=== PATIENT | female | born 1985 | race Caucasian/White ===

== ENCOUNTER 2016-12-28 18:16 | Emergency (ER) | payer OTHER ==
[~2016-12-28] VITALS: Ht 162.6 cm; Wt 79.0 kg
[2016-12-28 18:30] VITALS: Ht 162.6 cm; Wt 79.0 kg
[2016-12-28] MEDS ORDERED: morphine 4 MG/ML VIAL IV STA (19:07)
[2016-12-28] MEDS ORDERED: FAMOTIDINE 20 MG INJ IV STA (19:07)
[2016-12-28] MEDS ORDERED: ONDANSETRON 4 MG INJ IV STA (19:07)
[2016-12-28] MEDS ORDERED: SOD CHLORIDE 0.9% 1,000 ML IV STA (19:07)
[2016-12-28] MEDS ORDERED: LIDOCAINE/MYLANTA 40 ML BTL PO STA (19:07)
[2016-12-28 19:40] LABS: BASOPHILS % 0.4 % (0.0-2.0); EOSINOPHILS # 0.1 10^3/ul (0.0-0.5); EOSINOPHILS % 0.9 % (0.0-7.0); HEMATOCRIT 41.9 % (37.0-47.0); HEMOGLOBIN 14.1 g/dl (12.0-16.0); LYMPHOCYTES # 3.2 10^3/ul (0.8-2.9); LYMPHOCYTES % 30.9 % (15.0-51.0); MEAN CORPUSCULAR HEMOGLOBIN 28.5 pg (29.0-33.0); MEAN CORPUSCULAR HGB CONC 33.7 g/dl (32.0-37.0); MEAN CORPUSCULAR VOLUME 84.8 fl (82.0-101.0); MEAN PLATELET VOLUME 10.9 fl (7.4-10.4); MONOCYTE # 0.8 10^3/ul (0.3-0.9); MONOCYTES % 7.9 % (0.0-11.0); NEUTROPHIL # 6.1 10^3/ul (1.6-7.5); NEUTROPHILS % 59.4 % (39.0-77.0); PLATELET COUNT 340 10^3/UL (140-415); RED BLOOD COUNT 4.94 10^6/ul (4.20-5.40); RED CELL DISTRIBUTION WIDTH 12.3 % (11.5-14.5); WHITE BLOOD COUNT 10.2 10^3/ul (4.8-10.8)
[2016-12-28 19:50] LABS: ADD UMIC NO; UR ASCORBIC ACID NEGATIVE (NEGATIVE); UR BILIRUBIN (Dip) NEGATIVE (NEGATIVE); UR BLOOD (Dip) NEGATIVE (NEGATIVE); UR CLARITY CLEAR (CLEAR); UR COLOR STRAW (YELLOW); UR GLUCOSE (Dip) NEGATIVE (NEGATIVE); UR KETONES (Dip) NEGATIVE (NEGATIVE); UR LEUKOCYTE ESTERASE (Dip) NEGATIVE Leu/ul (NEGATIVE); UR NITRITE (Dip) NEGATIVE (NEGATIVE); UR SPECIFIC GRAVITY (Dip) 1.011 (1.003-1.030); UR TOTAL PROTEIN (Dip) NEGATIVE (NEGATIVE); UR UROBILINOGEN (Dip) NEGATIVE (NEGATIVE)
[2016-12-28 19:55] LABS: INR 0.91; PARTIAL THROMBOPLASTIN TIME 28.2 Sec (25.0-35.0); PROTIME 12.3 Sec (12.2-14.2)
[2016-12-28 19:58] LABS: ALBUMIN 4.9 g/dl (3.3-4.9); ALBUMIN/GLOBULIN RATIO 1.16; BILIRUBIN,INDIRECT 0.2 mg/dl (0-1.1); BILIRUBIN,TOTAL 0.2 mg/dl (0.2-1.3); CALCIUM 9.9 mg/dl (8.4-10.2); CREATININE 0.65 mg/dl (0.44-1.00); POTASSIUM 3.7 mmol/L (3.5-5.1); TOTAL PROTEIN 9.1 g/dl (6.1-8.1)
--- NOTE | 2016-12-28 21:13 | RADRPT ---
PROCEDURE: CT ABDOMEN AND PELVIS WITHOUT CONTRAST. CLINICAL INDICATION: Abdominal pain TECHNIQUE: CT scan of the abdomen and pelvis without contrast was performed on a multidetector hig h-resolution CT scanner. The patient was scanned without intravenous contrast. Coronal and sagittal reformatted images were obtained from the axial source images. Images were reviewed on a [employer] PACS workstation. The total exam CTDI equals 16.0 mGy and the total exam DLP equals 970 mGy-cm . One or more of the following dose reduction techniques were used: Automated exposure control. Adjustment of the mA and/or kV according to patient size. Use of iterative reconstruction technique. COMPARISON: None FINDINGS: CT abdomen: The lung bases are clear. The heart size is within limits. There is no significant pericardial effus ion. Hepatic morphology is within normal limits. No gross contour deforming masses. The gallbladder is wi thin normal limits. No evidence of intrahepatic or extrahepatic biliary dilatation. The spleen and pancreas are within normal limits. Both adrenal glands are within normal limits. Both kidneys are and normal anatomic position. There is a 1 mm nonobstructing stone within the mid p ole of the left kidney. No evidence of obstruction or hydronephrosis. The visualized GI tract demonstrate normal caliber loops of small and large bowel. No evidence of doreen wel obstruction. The appendix is within normal limits. The unenhanced aorta is unremarkable. No significant retroperitoneal lymphadenopathy. CT pelvis: The bladder is within limits. The rectosigmoid colon is within normal limits. No significant free fl uid. No significant pelvic lymphadenopathy The uterus is mildly prominent but otherwise appears to be within normal limits. Small left adnexal cyst is noted. The visualized osseous structures appear to be within normal limits. IMPRESSION: 1. No evidence of acute intra-abdominal/pelvic inflammatory process. No evidence of bowel obstructio n. The appendix is within normal limits. 2. Punctate 1 mm nonobstructing left-sided nephrolithiasis. No obstruction or hydronephrosis within both kidneys. 3. No free fluid or free air. No gross focal fluid collections. RPTAT: AAPP Physician Stephany Date Time Electronically viewed and signed by Physician Stephany on 12/28/2016 21:13 JENNIFFER/
[2016-12-28] MEDS ORDERED: RANI150T9 PO (21:17)
[2016-12-28] MEDS ORDERED: ONDA4TAB14 PO (21:17)
[2016-12-28] MEDS ORDERED: OMEP20CA16 PO (21:17)
--- NOTE | 2017-01-05 18:41 | ERD ---
ER Documentation Chief Complaint Chief Complaint bib self, cc: abdominal pain, nausea and vomiting x 2 weeks, burning sensat HPI Patient is a 31-year-old female presenting to the emergency department with complaints of abdominal pain, nausea, and vomiting intermittently for the past 2 weeks. Symptoms are worsening. Symptoms are moderate in severity. Last menstrual cycle was December 08, 2016. The patient denies fevers, chills, or other symptoms currently. ROS All systems reviewed and are negative except as per history of present illness. Medications Home Meds Active Scripts Ondansetron (Ondansetron Odt) 4 Mg Tab.rapdis, 4 MG PO Q6H Y for NAUSEA AND/OR VOMITING, #10 TAB Prov:REGULO IGLESIAS PA-C 12/28/16 Ranitidine Hcl* (Zantac*) 150 Mg Tablet, 150 MG PO BID Y for EPIGASTRIC PAIN, # 30 TAB Prov:REGULO IGLESIAS PA-C 12/28/16 Omeprazole* (Omeprazole*) 20 Mg Capsule.dr, 20 MG PO DAILY, #20 Prov:REGULO IGLESIAS PA-C 12/28/16 Allergies Allergies: Coded Allergies: No Known Allergy (Unverified , 12/28/16) PMhx/Soc Medical and Surgical Hx: pt denies Medical Hx, pt denies Surgical Hx Hx Alcohol Use: No Hx Substance Use: No Hx Tobacco Use: No Smoking Status: Never smoker Physical Exam Physical Exam Const: Nontoxic, well-appearing female in no acute distress. Head: Atraumatic Eyes: Normal Conjunctiva ENT: Normal External Ears, Nose and Mouth. Neck: Full range of motion..~ No meningismus. Resp: Clear to auscultation bilaterally Cardio: Regular rate and rhythm, no murmurs Abd: Soft, mild midepigastric pain to palpation, no rebound tenderness or guarding, negative McBurney's point tenderness, negative Granger sign, non distended. Normal bowel sounds Skin: No petechiae or rashes Back: No midline or flank tenderness Ext: No cyanosis, or edema Neur: Awake and alert Psych: Normal Mood and Affect Results 24 hrs Laboratory Tests Test 12/28/16 19:24 White Blood Count 10.210^3/ul Red Blood Count 4.9410^6/ul Hemoglobin 14.1g/dl Hematocrit 41.9% Mean Corpuscular Volume 84.8fl Mean Corpuscular Hemoglobin 28.5pg Mean Corpuscular Hemoglobin Concent 33.7g/dl Red Cell Distribution Width 12.3% Platelet Count 80111^3/UL Mean Platelet Volume 10.9fl Neutrophils % 59.4% Lymphocytes % 30.9% Monocytes % 7.9% Eosinophils % 0.9% Basophils % 0.4% Nucleated Red Blood Cells % 0.0/100WBC Neutrophils # 6.110^3/ul Lymphocytes # 3.210^3/ul Monocytes # 0.810^3/ul Eosinophils # 0.110^3/ul Basophils # 0.010^3/ul Nucleated Red Blood Cells # 0.010^3/ul Prothrombin Time 12.3Sec Prothrombin Time Ratio 1.0 INR International Normalized Ratio 0.91 Activated Partial Thromboplast Time 28.2Sec Urine Color STRAW Urine Clarity CLEAR Urine pH 5.0 Urine Specific [place] 1.011 Urine Ketones NEGATIVEmg/dL Urine Nitrite NEGATIVEmg/dL Urine Bilirubin NEGATIVEmg/dL Urine Urobilinogen NEGATIVEmg/dL Urine Leukocyte Esterase NEGATIVELeu/ul Urine Hemoglobin NEGATIVEmg/dL Urine Glucose NEGATIVEmg/dL Urine Total Protein NEGATIVEmg/dl Sodium Level 141mmol/L Potassium Level 3.7mmol/L Chloride Level 103mmol/L Carbon Dioxide Level 26mmol/L Anion Gap 16 Blood Urea Nitrogen 12mg/dl Creatinine 0.65mg/dl Glucose Level 93mg/dl Calcium Level 9.9mg/dl Total Bilirubin 0.2mg/dl Direct Bilirubin 0.00mg/dl Indirect Bilirubin 0.2mg/dl Aspartate Amino Transf (AST/SGOT) 26IU/L Alanine Aminotransferase (ALT/SGPT) 37IU/L Alkaline Phosphatase 80IU/L Total Protein 9.1g/dl Albumin 4.9g/dl Globulin 4.20g/dl Albumin/Globulin Ratio 1.16 Lipase 180U/L Current Medications Medications (Trade) Dose Ordered Sig/Jorge Route PRN Reason Start Time Stop Time Status Last Admin Dose Admin Sodium Chloride (NS) 1,000 ml @ 1,000 mls/hr Q1H STAT IV 12/28/16 19:07 12/28/16 20:06 DC 12/28/16 19:31 Morphine Sulfate (morphine) 4 mg ONCE STAT IV 12/28/16 19:07 12/28/16 19:12 DC 10/21/17 19:31 Ondansetron HCl (Zofran Inj) 4 mg ONCE STAT IV 12/28/16 19:07 12/28/16 19:12 DC 12/28/16 19:31 Famotidine (Pepcid Iv) 20 mg ONCE STAT IV 12/28/16 19:07 12/28/16 19:12 DC 12/28/16 19:31 Miscellaneous Medication (Gi Cocktail (2)) 40 ml ONCE STAT PO 12/28/16 19:07 12/28/16 19:12 DC 12/28/16 19:31 Procedures/MDM Patient is a 31-year-old female presenting to the emergency department with complaints of abdominal pain. Physical examination does show some mild midepigastric tenderness palpation but no McBurney's point tenderness. The patient was placed on a stretcher, IV line established, patient was given IV fluids, IV morphine, IV Zofran, IV Pepcid, GI cocktail p.o. The patient was feeling improved on reevaluation. On laboratory review, the patient had no evidence of leukocytosis or anemia on CBC. Chemistry panel was essentially unremarkable. Negative urinalysis. CT scan showed no significant findings which would be causing the patient's pain. The patient was stable for discharge with a diagnosis of epigastric pain of unclear etiology. Top differential includes GERD. Low suspicion for acute abdomen or other emergent conditions at time of discharge. Patient agreed with the discharge plan a diagnosis. She is given prescription for Zofran, Zantac, and omeprazole. Pt/family in agreement with discharge plan/diagnosis. Pt/family advised to return immediately with any new or worsening symptoms. Follow-up with primary care physician within the next 1-2 days. Disclaimer: Inadvertent spelling and grammatical errors are likely due to EHR/ dictation software use and do not reflect on the overall quality of patient care. Also, please note that the electronic time recorded on this note does not necessarily reflect the actual time of the patient encounter. PROCEDURE: CT ABDOMEN AND PELVIS WITHOUT CONTRAST. CLINICAL INDICATION: Abdominal pain TECHNIQUE: CT scan of the abdomen and pelvis without contrast was performed on a multidetector high-resolution CT scanner. The patient was scanned without intravenous contrast. Coronal and sagittal reformatted images were obtained from the axial source images. Images were reviewed on a high-resolution PACS workstation. The total exam CTDI equals 16.0 mGy and the total exam DLP equals 970 mGy-cm. One or more of the following dose reduction techniques were used: Automated exposure control. Adjustment of the mA and/or kV according to patient size. Use of iterative reconstruction technique. COMPARISON: None FINDINGS: CT abdomen: The lung bases are clear. The heart size is within limits. There is no significant pericardial effusion. Hepatic morphology is within normal limits. No gross contour deforming masses. The gallbladder is within normal limits. No evidence of intrahepatic or extrahepatic biliary dilatation. The spleen and pancreas are within normal limits. Both adrenal glands are within normal limits. Both kidneys are and normal anatomic position. There is a 1 mm nonobstructing stone within the mid pole of the left kidney. No evidence of obstruction or hydronephrosis. The visualized GI tract demonstrate normal caliber loops of small and large bowel. No evidence of bowel obstruction. The appendix is within normal limits. The unenhanced aorta is unremarkable. No significant retroperitoneal lymphadenopathy. CT pelvis: The bladder is within limits. The rectosigmoid colon is within normal limits. No significant free fluid. No significant pelvic lymphadenopathy The uterus is mildly prominent but otherwise appears to be within normal limits. Small left adnexal cyst is noted. The visualized osseous structures appear to be within normal limits. IMPRESSION: 1. No evidence of acute intra-abdominal/pelvic inflammatory process. No evidence of bowel obstruction. The appendix is within normal limits. 2. Punctate 1 mm nonobstructing left-sided nephrolithiasis. No obstruction or hydronephrosis within both kidneys. 3. No free fluid or free air. No gross focal fluid collections. RPTAT: AAPP Physician Stephany Date Time Electronically viewed and signed by Physician Stephany on 12/28/2016 21:13 Departure Diagnosis: Primary Impression: Epigastric pain Condition: Fair Patient Instructions: Gerd (Adult), Epigastric Pain (Uncertain Cause) Referrals: COMM[facility]ITY [facility] YOU HAVE RECEIVED A MEDICAL SCREENING EXAM AND THE RESULTS INDICATE THAT YOU DO NOT HAVE A CONDITION THAT REQUIRES URGENT TREATMENT IN THE EMERGENCY DEPARTMENT. FURTHER EVALUATION AND TREATMENT OF YOUR CONDITION CAN WAIT UNTIL YOU ARE SEEN IN YOUR DOCTORS OFFICE WITHIN THE NEXT 1-2 DAYS. IT IS YOUR RESPONSIBILITY TO MAKE AN APPOINTMENT FOR FOLOW-UP CARE. IF YOU HAVE A PRIMARY DOCTOR --you should call your primary doctor and schedule an appointment IF YOU DO NOT HAVE A PRIMARY DOCTOR YOU CAN CALL OUR PHYSICIAN REFERRAL HOTLINE AT IF YOU CAN NOT AFFORD TO SEE A PHYSICIAN YOU CAN CHOSE FROM THE FOLLOWING [facility] [id number] [facility] [address] [facility] [address] [facility] [address] [facility] [address] [facility]. [facility]. [address] Additional Instructions: Follow up with your PCP within the next 1-3 days for a repeat evaluation. If you require a referral to a specialist, your Primary Care Provider may be able to provide this for you. In most patient cases, a referral is not required. If you have further questions regarding this matter, please ask your Primary Care Provider. Return the the emergency department immediately if symptoms worsen or change. If you have any questions regarding medications, ask your pharmacist or us before you leave. If any adverse reactions, occur while taking your medications, discontinue the treatment and return to the emergency department immediately. If any new or worsening symptoms, uncontrolled fevers, or other unexplained symptoms occur, return to the emergency department immediately. Take your medications as directed, and complete the entire course of treatment. REGULO IGLESIAS PA-C Jan 05, 2017 18:38
== END 2016-12-28 21:18 | disposition home or self-care (01) ==
LOC: FTE 18:16
DX: R10.13 Epigastric pain (principal); R11.2 Nausea with vomiting, unspecified
CPT/HCPCS: 36415; 74176; 80053; 81003; 83690; 85025; 85610; 85730; 96374; 96375; J2270; J2405; J7030; Z7502; Z7610

== ENCOUNTER 2017-05-22 14:28 | Day surgery (SDC) | END 2017-05-22 18:29 | disposition home or self-care (01) ==

== ENCOUNTER 2017-12-02 18:52 | Emergency (ER) | END 2017-12-02 23:17 | disposition home or self-care (01) ==

== ENCOUNTER 2018-06-19 08:00 | Inpatient (IN) | payer OTHER ==
[~2018-06-19] VITALS: Ht 160 cm; Wt 103.6 kg
[2018-06-19 08:35] VITALS: Ht 160 cm; Wt 103.6 kg
[2018-06-19] MEDS ORDERED: METF500T24 PO (08:38)
[2018-06-19 09:00] VITALS: BP 130/90; PULSE 112; RESP 20
[2018-06-19] MEDS ORDERED: IBUPROFEN 600 MG TAB PO PRN (09:00)
[2018-06-19] MEDS ORDERED: MISOPROSTOL 200 MCG TAB PR PRN (09:00)
[2018-06-19] MEDS ORDERED: LIDOCAINE 1% (MPF) 30 ML INJ INJ PRN (09:00)
[2018-06-19] MEDS ORDERED: OXYCODONE/ACETAMINOPHEN (5/325) TAB PO PRN (09:00)
[2018-06-19] MEDS ORDERED: METHYLERGONOVINE 0.2 MG INJ IM PRN (09:00)
[2018-06-19] MEDS ORDERED: OXYTOCIN 30 UNITS/LR 500 ML IV PRN (09:00)
[2018-06-19] MEDS ORDERED: CARBOPROST 250 MCG INJ IM PRN (09:00)
[2018-06-19] MEDS ORDERED: AMPICILLIN 2 GM/NS (PMX) 100 ML IV ONE (09:00)
[2018-06-19] MEDS ORDERED: OXYTOCIN 30 UNITS/LR 500 ML IV SCH ×3 (09:00→15:00)
[2018-06-19] MEDS: LACTATED RINGER'S 1,000 ML IV SCH ×2 (09:46→18:16)
[2018-06-19] MEDS ORDERED: PREN-17 PO (09:59)
[2018-06-19] MEDS: DEXTROSE 5%-LR 1,000 ML IV SCH ×2 (10:57→21:37)
[2018-06-19] MEDS ORDERED: MISOPROSTOL 50 MCG CAPSULE PO ONE (11:00)
[2018-06-19] MEDS: MISOPROSTOL 50 MCG CAPSULE PO SCH ×2 (11:38→17:00)
[2018-06-19] MEDS: AMPICILLIN 1 GM/NS (PMX) 50 ML IV SCH ×3 (14:01→22:06)
--- NOTE | 2018-06-19 17:54 | PREAC ---
Date/Time of Note Date/Time of Note DATE: 06/19/18 TIME: 17:53 Anesthesia Eval and Record Evaluation Time Pre-Procedure Interview DATE: 06/19/18 TIME: 17:53 Age 32 Sex female NPO: 8 hrs Preoperative diagnosis labor pain Planned procedure epidural Past Medical History Past Medical History: Includes Cardio: HTN Endo: Diabetes GI: Morbid obesity Surgery & Anesthesia Issues No known issue Meds Anticoagulation: No Beta Miguel within 24 hr: No Reason Beta Miguel not given: Pt. not on B-Miguel Reported Medications Vit No.78/Iron/FA (Prenatabs FA Tablet) 1 Each Tablet, 1 EACH PO, TAB 06/19/18 Metformin Hcl* (Metformin Hcl*) 500 Mg Tablet, 500 MG PO WITH BREAKFAST DINNE, #60 TAB 06/19/18 [None] No Conflict Check 05/22/17 Current Medications Lactated Ringer's 1,000 ml @ 125 mls/hr Q8H IV Last administered on 06/19/18at 09:46; Admin Dose 125 MLS/HR; Start 06/19/18 at 08:38 Dextrose/Lactated Ringer's 1,000 ml @ 125 mls/hr Q8H IV Last administered on 06/19/18at 10:57; Admin Dose 125 MLS/HR; Start 06/19/18 at 08:38 Ampicillin 50 ml @ 100 mls/hr Q4H IV Last administered on 06/19/18at 14:01; Admin Dose 100 MLS/HR; Start 06/19/18 at 13:00 Lidocaine (Xylocaine 1% (Mpf)) 30 ml ONCE PRN INJ .EPISIOTOMY; Start 06/19/18 at 09:00 Oxytocin/Lactated Ringer's 500 ml @ 500 mls/hr ONCE POST IV ; Start 02/25 at 09:00 Oxytocin/Lactated Ringer's 500 ml @ 125 mls/hr POST IV ; Start 06/19/18 at 09:00 Ibuprofen (Motrin) 600 mg ONCE PRN PO .PAIN 1-5; Start 06/19/18 at 09:00 Oxycodone/ Acetaminophen (Percocet (5/ 325)) 2 tab ONCE PRN PO .PAIN 6-10; Start 06/19/18 at 09:00 Oxytocin/Lactated Ringer's 500 ml @ 0 mls/hr ONCE PRN IV .VAGINAL BLEEDING; Start 06/19/18 at 09:00 Methylergonovine Maleate (Methergine) 0.2 mg ONCE PRN IM .VAGINAL BLEEDING; Start 06/19/18 at 09:00 Carboprost Tromethamine (Hemabate) 250 mcg ONCE PRN IM .VAGINAL BLEEDING; Start 06/19/18 at 09:00 Misoprostol (Cytotec) 1,000 mcg ONCE PRN [place] .VAGINAL BLEEDING; Start 06/19/18 at 09:00 Misoprostol (Cytotec 50 Mcg Capsule) 50 mcg Q4 PO Last administered on 06/19/18at 11:38; Admin Dose 50 MCG; Start 06/19/18 at 12:00; Stop 06/20/18 at 09:01 Oxytocin/Lactated Ringer's 500 ml @ 0 mls/hr FOR INDUCTION IV Last administered on 06/19/18at 15:29; Admin Dose 1 MLS/HR; Start 06/19/18 at 15:00 Meds reviewed: Yes Allergies Coded Allergies: No Known Allergy (Unverified , 06/19/18) Allergies Reviewed: Yes Labs/Studies Labs Reviewed: Reviewed by anesthesiologist Result Diagram: 06/19/18 0845 06/19/18 0845 Laboratory Tests 06/19/18 08:45 Blood Bank Test 06/19/18 08:45 Antibody Screen NEGATIVE Blood Type AB POSITIVE Rh Immune Globulin Candidate NO test: Positive Studies: ECG (n/a), CXR (n/a) Pre-procedure Exam Airway: Adequate mouth opening Mallampati: Mallampati I Teeth: Normal Lung: Normal Heart: Normal ASA Physical Status ASA physical status: 2 Emergency: None Planned Anesthetic Neuraxial: Epidural Pre-operative Attestations Prior to commencing anesthesia and surgery, the patient was re-evaluated, there was verification of: *The patient's identity *The results of appropriate recent lab work and preoperative vital signs *The above evaluation not changing prior to induction *Anesthetic plan, risk benefits, alternative and complications discussed with patient/family; questions answered; patient/family understands, accepts and wishes to proceed. TAYLOR MUNOZ MD Jun 19, 2018 17:54
[2018-06-19] MEDS ORDERED: FENTAnyl 2MCG/ML-ROPIV 0.2% 100 ML ONE (17:55)
[2018-06-19] MEDS ORDERED: NALOXONE (0.4 MG/ML) INJ IV PRN (18:30)
[2018-06-19] MEDS ORDERED: FENTAnyl 2MCG/ML-ROPIV 0.2% 100 ML BAG EPI SCH (18:30)
--- NOTE | 2018-06-19 19:14 | HP ---
Date/Time of Note Date/Time of Note DATE: 06/19/18 TIME: 19:11 OB - History Hx of Present Chief Complaint: induction of labor Estimated Due Date: Jun 26, 2018 : 4 Para: 1 Spontaneous : 2 Therapeutic : 0 Care: Good Care Ultrasounds: Normal mid trimester US Obstetrical Complications: Gestational Diabetes Medical Complications: None Past Family/Social History * Past Medical, Surgical, Family and Obstetric Histories reviewed from chart. GBS Status: Unknown OB Admission Exam Physical Exam HEENT: WNL Heart: Rhythm Normal Lungs: Clear, Equal Abdomen: WNL Extremities: Normal Reflexes: Normal Cervical Dilatation: 1cm Effacement: 50% Station: -2 Membranes: Intact Heart Rate: 120's Accelerations: Accelerations Present Decelerations: No Decelerations Varibility: Moderate Last 72 hourBlood Glucose Bedside Glucose - 72 Hours Test 06/19/18 10:29 06/19/18 13:17 06/19/18 15:05 06/19/18 17:06 Bedside 75 81 125 72 Glucose mg/dL (70-220) mg/dL (70-220) mg/dL (70-220) mg/dL (70-220) Last 72 hours Lab Results CBC & BMP 06/19/18 08:45 Liver Function Test 06/19/18 08:45 Alanine Aminotransferase (ALT/SGPT) 11 L Albumin 3.6 Alkaline Phosphatase 141 H Aspartate Amino Transf (AST/SGOT) 22 Direct Bilirubin 0.00 Total Protein 6.8 OB Assessment/Plan Reason for admission: induction of labor Plan: Induction Induction Method: per Misoprostol Protocol PABLO SHOOK MD Jun 19, 2018 19:14
[2018-06-19] MEDS ORDERED: MINERAL OIL LIGHT 10 ML VIAL TOP ONE (22:00)
[2018-06-19] MEDS ORDERED: CEFAZOLIN 2 GM/50 ML (PMX) 50 ML IVPB ONE (23:30)
--- NOTE | 2018-06-19 23:34 | LDN ---
Date/Time of Note Date/Time of Note DATE: 06/19/18 TIME: 23:29 Delivery Summary over intact perineum. Shoulder dystocia noted. Mc Dudley maneuver performed. Suprapubic pressure was given. Baby's shoulders and trunk subsequently delivered with no traction on baby's neck. Weeks of Gestation 39 weeks Placenta Delivered: Spontaneously Meconium: Light Episiotomy: No Laceration repair: Second degree perineal laceration repaired with 3-0 Vicryl and 3-0 chromic. Anesthesia type: Epidural Estimated blood loss: 300 Sponge & Needle done & correct: Yes All needle counts correct: Yes Any foreign bodies felt in the: No Infant Delivery Information Sex Infant Sex: male Apgars 1 Minute: 7 5 Minute: 9 Suctioning Nose & mouth suctioned at shelly: No Umbilical Cord Umbilical cord with: 3 Vessels Cord presentations: no nuchal cord Cord Blood was obtained: Yes Mother & Baby Disposition Disposition Mom & Baby to Maternity; Good: Yes PABLO SHOOK MD Jun 19, 2018 23:33
[2018-06-20] MEDS ORDERED: BENZOCAINE 20% 56 ML SPRAY TOP PRN (01:30)
[2018-06-20] MEDS ORDERED: OXYTOCIN 30 UNITS/LR 500 ML IV PRN (01:30)
[2018-06-20] MEDS ORDERED: ACETAMINOPHEN 325 MG TAB PO PRN (01:30)
[2018-06-20] MEDS ORDERED: DIBUCAINE 1% 30 GM OINT TOP PRN (01:30)
[2018-06-20] MEDS ORDERED: METHYLERGONOVINE 0.2 MG INJ IM PRN (01:30)
[2018-06-20] MEDS ORDERED: HYDROCODONE/APAP (5/325) TAB PO PRN (01:30)
[2018-06-20] MEDS ORDERED: MISOPROSTOL 200 MCG TAB PR PRN (01:30)
[2018-06-20] MEDS ORDERED: WITCH HAZEL/GLYCERIN PAD PR PRN (01:30)
[2018-06-20] MEDS ORDERED: CARBOPROST 250 MCG INJ IM PRN (01:30)
[2018-06-20 01:35] VITALS: BP 120/59; PULSE 116; RESP 18
[2018-06-20] MEDS: LACTATED RINGER'S 1,000 ML IV* SCH ×2 (03:57→21:31)
[2018-06-20 04:00] VITALS: BP 127/79; PULSE 112; RESP 18
[2018-06-20] MEDS: IBUPROFEN 600 MG TAB PO SCH ×3 (06:11→18:02)
--- NOTE | 2018-06-20 06:49 | PAC ---
Date/Time of Note Date/Time of Note DATE: 06/20/18 TIME: 06:49 Post-Anesthesia Notes Post-Anesthesia Note Last documented vital signs Vital Signs Date Temp Pulse Resp B/P (MAP) Pulse Ox O2 O2 Flow FiO2 Time Delivery Rate 06/20/18 99.0 112 18 127/79 98 Room Air 04:00 (95) 06/19/18 98 09:00 Activity: WNL Respiratory function: WNL Cardiovascular function: WNL Mental status: Baseline Pain reasonably controlled: Yes Hydration appropriate: Yes Nausea/Vomiting absent: No TAYLOR MUNOZ MD Jun 20, 2018 06:49
[2018-06-20 08:00] VITALS: BP 134/69; PULSE 97; RESP 16
[2018-06-20 09:00] VITALS: BP 121/64; PULSE 101; RESP 17
[2018-06-20] MEDS: SENNA/DOCUSATE NA (8.6MG/50MG) TAB PO SCH ×2 (09:35→21:00)
--- NOTE | 2018-06-20 15:53 | DS ---
Date/Time of Note Date/Time of Note DATE: 06/20/18 TIME: 15:52 Obstetrical Discharge Record Final Diagnosis Final Diagnosis: Term delivered Vaginal Delivery Obstetrical Delivery: Spontaneous Complications Gestational Diabetes Induction: Yes Condition on Discharge Physical Assessment Voiding: Yes Bowel Movement: Yes Breast: Soft, non-tender, Filling Fundus: Firm Calf Tenderness: No Patient Condition: Stable PABLO SHOOK MD Jun 20, 2018 15:53
[2018-06-20 16:14] VITALS: BP 138/77; PULSE 106; RESP 18
[2018-06-20 20:10] VITALS: BP 120/75; PULSE 96; RESP 18
[2018-06-21] MEDS: IBUPROFEN 600 MG TAB PO SCH ×2 (00:14→06:27)
[2018-06-21] MEDS: LACTATED RINGER'S 1,000 ML IV* SCH (01:24)
[2018-06-21 04:00] VITALS: BP 93/50; PULSE 80; RESP 18
[2018-06-21 09:00] VITALS: BP 120/72; PULSE 105; RESP 14
[2018-06-21] MEDS: SENNA/DOCUSATE NA (8.6MG/50MG) TAB PO SCH (09:00)
[2018-06-21] MEDS ORDERED: DIPHTH/TET/ACEL PERTUSS (ADULT) 0.5 ML VIAL IM* ONE (09:00)
--- NOTE | 2018-06-22 13:50 | DELSUM ---
Delivery Summary A-C Datetime Report Generated by CPN: 06/22/2018 13:50 DELIVERY PERSONNEL Cargoman: Vivian Rdz MATERNAL INFORMATION Delivery Anesthesia: Epidural Medications in Delivery: lr 500ml pitocin 30 units Delivery QBL (ml): 300 Placenta Cultured: No Maternal Complications: None LABOR SUMMARY EDC: 06/26/2018 00:00 No. Babies in Womb: 1 Attempted: No Labor Anesthesia: Epidural LABOR INFORMATION Reason for Induction: Macrosomia; Gest. HTN/PreEclam/Eclamp Onset of Labor: 06/19/2018 11:38 Complete Dilatation: 06/19/2018 22:46 Cervical Ripening Agents: Cytotec @ (Annotations: #1 50 MCG PO) Oxytocin: Induction Group B Beta Strep: Not Done Antibiotics # of Doses: 4 Antibiotics Time of Last Dose: 06/19/2018 22:06 Steroids Given: None Reason Steroids Not Administered: Not Applicable MEMBRANES Membranes Rupture Method: Spontaneous Rupture of Membranes: 06/19/2018 21:42 Length of Rupture (hr): 1.40 Amniotic Fluid Color: Light Meconium Amniotic Fluid Amount: Large Amniotic Fluid Odor: None STAGES OF LABOR Stage 1 hr: 11 Stage 1 min: 8 Stage 2 hr: 0 Stage 2 min: 20 Stage 3 hr: 0 Stage 3 min: 3 Total Time in Labor hr: 11 Total Time in Labor min: 31 VAGINAL DELIVERY Episiotomy: None Laceration Extension: Second Degree Laceration Type: Perineal Laceration Repair: Yes (Annotations: Data stored by N on behalf of user) Initial Vag Sponge Count: 10 Final Vag Sponge Count: 10 Initial Vag Sharps Count: 1+2 Final Vag Sharps Count: 3 Sponge Count Correct: Yes; Vaginal Sweep Performed Sharps Count Correct: Yes BABY A INFORMATION Delivery Date/Time: 06/19/2018 23:06 Method of Delivery: Vaginal Born in Route : No : N/A Forceps: N/A Vacuum Extraction: N/A Shoulder Dystocia : Yes SHOULDER DYSTOCIA BABY A Delivery of Head: 06/19/2018 23:05 Delivery Date/Time: 06/19/2018 23:06 Time Head to Delivery : 1.0 1st Intervention to Resolve: Suprapubic Pressure Arm Under Symphisis at Del: Left PRESENTATION/POSITION BABY A Presentation: Cephalic Cephalic Presentation: Vertex Vertex Position: Left Occipital Transverse Breech Presentation: N/A PLACENTA INFORMATION BABY A Placenta Delivery Time : 06/19/2018 23:09 Placenta Method of Delivery: Spontaneous Placenta Status: Delivered SCORES BABY A Heart Rate 1 min: >100 bpm Resp Effort 1 min: Slow, Irregular Reflex Irritability 1 min: Cough/Sneeze/Pulls Away Muscle Tone 1 min: Active Motion Color 1 min: Blue/Pale Resuscitation Effort 1 min: Tactile Stimulation; Oxygen SCORE 1 MIN: 7 Heart Rate 5 min: >100 bpm Resp Effort 5 min: Good Cry Reflex Irritability 5 min: Cough/Sneeze/Pulls Away Muscle Tone 5 min: Active Motion Color 5 min: Body [place], Extremit Blue Resuscitation Effort 5 min: Tactile Stimulation SCORE 5 MIN: 9 INFORMATION BABY A Gestational Age at Delivery: 39.0 Gestational Status: Full Term- 39- 40.6 Weeks Outcome : Liveborn Infant Condition : Stable Infant Sex: Male IDENTIFICATION/MEDS BABY A ID Band Number: [id number] ID Band Location: Right Leg; Left Arm Sensor Applied: Yes Sensor Number: [id number] Sensor Location : Cord Clamp Vitamin K Given : Not Given Erythromycin Given: Not Given WEIGHT/LENGTH BABY A Infant Birthweight (gm): 4445 Infant Weight (lb): 9 Infant Weight (oz): 13 Length (in): 21.50 Infant Length (cm): 54.61 CORD INFORMATION BABY A No. Cord Vessels: 3 Nuchal Cord : NUCAL CORD AROUND LEFT FOOT Cord Blood Taken: Yes Suction: Mouth; Nose ASSESSMENT BABY A Infant Complications: Meconium Physical Findings at Delivery: Bruising Physical Findings- Other: FACIAL BRUISING Respirations: Appears Normal Information Coder/ALS Called : No Care By: TRUDI Pfeiffer Transferred To: Remains with Mother
== END 2018-06-21 12:20 | disposition home or self-care (01) | DRG 807 ==
LOC: L-D 08:00 → PP1 06-20 08:26
PROVIDERS: ADMIT Obstetrics & Gynecology; ATTEND Obstetrics & Gynecology
PROC: 0KQM0ZZ Repair Perineum Muscle, Open Approach (ICD-10-PCS; 2018-06-19)
PROC: 3E033VJ Introduction of Other Hormone into Peripheral Vein, Percutaneous Approach (ICD-10-PCS; 2018-06-19)
PROC: 10E0XZZ Delivery of Products of Conception, External Approach (ICD-10-PCS; principal; 2018-06-19 08:00)
DX: O24.429 Gestational diabetes mellitus in childbirth, unspecified control (principal); Z37.0 Single live birth; O66.0 Obstructed labor due to shoulder dystocia; O70.1 Second degree perineal laceration during delivery; Z3A.39 39 weeks gestation of pregnancy
CPT/HCPCS: 76815; 80053; 81001; 82962; 84560; 85025; 85610; 85730; 86592; 86850; 86900; 86901; 87340; 99464; J0290; J0690; J2590; J3010; J7120; J7121

== ENCOUNTER 2018-07-07 18:17 | Emergency (ER) | payer SELFPAY ==
[~2018-07-07 18:17] MED LIST: PREN-17 PO
== END 2018-07-07 18:45 | disposition left against medical advice (07) ==
LOC: E/R 18:17
DX: Z53.21 Procedure and treatment not carried out due to patient leaving prior to being seen by health care provider (principal)